=== PATIENT | female | born 1975 | race Caucasian/White ===

== ENCOUNTER 2016-05-14 12:24 | Outpatient (CLI) ==
[2012-11-07 13:31] VITALS: TEMP 97.2
[2015-10-22 03:24] VITALS: BMI 22.3
--- NOTE | 2016-05-14 12:44 | DI ---
EXAM: Chest two view, frontal and lateral views. HISTORY: Headache. COMPARISON: 10/22/2015, 04/23/2012. FINDINGS: The heart size is normal. There is no pulmonary vascular congestion. The lungs are hina r save for calcified granulomatous changes. No pleural effusion or pneumothorax is seen. No acute osseous abnormality identified. Since the prior study, there has been no significant interval [place] e. IMPRESSION: No acute cardiopulmonary process.
[2016-05-14 12:54] LABS: BASOPHILS % (AUTO) 0.4 % (0.0-3.0); EOSINOPHILS # (AUTO) 0.4 K/ul (0.0-0.7); EOSINOPHILS % (AUTO) 3.9 % (0.0-7.0); HEMATOCRIT 40.2 % (37.0-47.0); HEMOGLOBIN 13.2 g/dl (12.0-16.0); IMMATURE GRANULOCYTE % (AUTO) 0.3 % (0.0-5.0); LYMPHOCYTES # (AUTO) 1.9 K/uL (0.60-3.4); LYMPHOCYTES % (AUTO) 19.2 (10.0-50.0); MEAN CORPUSCULAR HEMOGLOBIN 30.2 pg (27.0-31.0); MEAN CORPUSCULAR HGB CONC 32.8 (31.8-35.4); MONOCYTES # (AUTO) 0.9 K/uL (0.4-2.0); MONOCYTES % (AUTO) 8.9 (0-10); NEUTROPHILS # (AUTO) 6.6 K/ul (2.0-6.9); NEUTROPHILS % (AUTO) 67.3; PLATELET COUNT 252 10^3/uL (140-440); RED BLOOD COUNT 4.37 10^6/ul (4.20-5.40); WHITE BLOOD COUNT 9.88 K/ul (4.6-10.2)
[2016-05-14 13:09] LABS: ALBUMIN 3.5 g/dL (3.4-5.0); ALBUMIN/GLOBULIN RATIO 0.97; BILIRUBIN,TOTAL 0.21 mg/dL (0.00-1.20); BUN/CREATININE RATIO 12.19; CALCIUM 9.2 mg/dL (8.2-10.2); CREATININE 0.82 mg/dL (0.60-1.30); TOTAL PROTEIN 7.1 g/dL (6.4-8.2)
== END 2016-05-14 12:25 | disposition home or self-care (01) ==
LOC: RAD 12:24
PROVIDERS: ATTEND Nurse Practitioner Family
DX: G44.89 Other headache syndrome (principal); J98.8 Other specified respiratory disorders; R42 Dizziness and giddiness
CPT/HCPCS: 36415; 80053; 85025

== ENCOUNTER 2016-05-19 10:05 | Outpatient (CLI) ==
[2012-11-07 13:31] VITALS: TEMP 97.2
[2015-10-22 03:24] VITALS: BMI 22.3
--- NOTE | 2016-05-19 10:39 | CT ---
EXAM: CT head without contrast. HISTORY: Headache. COMPARISON: 10/22/2015. TECHNIQUE: Multiple axial images of the brain were obtained from the skull base through the vertex without intravenous contrast. FINDINGS: There well-aligned tonsils, although CSF spaces appear preserved. no intracranial hemorr cristo or extraaxial collection. The tate-white differentiation is maintained without evidence for ac [place] large vascular territory infarction. The cortical sulci and basal cisterns are well visualized. There is no hydrocephalus, mass effect, or midline shift. Mild maxillary sinus mucosal thickening noted with a moderate amount of mucus in the left maxillary sinus. Otherwise, the paranasal sinuse s and mastoid air cells are clear. The calvarium is intact. IMPRESSION: 1. No acute intracranial abnormality. 2. Maxillary sinusitis.
== END 2016-05-19 10:06 | disposition home or self-care (01) ==
LOC: RAD 10:05
PROVIDERS: ATTEND Nurse Practitioner Family
DX: G44.89 Other headache syndrome (principal)

== ENCOUNTER 2016-05-28 09:43 | Outpatient (CLI) ==
[2012-11-07 13:31] VITALS: TEMP 97.2
[2015-10-22 03:24] VITALS: BMI 22.3
--- NOTE | 2016-05-28 10:54 | MAMMO ---
EXAM: Bilateral digital screening mammogram History: Baseline screening Findings: MLO and CC views of bilateral breasts demonstrate heterogeneously dense breast parenchyma which can obscure small lesions. There are no dominant masses, no suspicious microcalcifications a nd no architectural distortions Impression: Negative mammogram. Recommend followup routine screening mammography in 1 year. BIRADS 1
== END 2016-05-28 09:44 | disposition home or self-care (01) ==
LOC: RAD 09:43
PROVIDERS: ATTEND Nurse Practitioner Family
DX: Z12.31 Encounter for screening mammogram for malignant neoplasm of breast (principal)

== ENCOUNTER 2017-10-31 01:25 | Outpatient (CLI) ==
[2012-11-07 13:31] VITALS: TEMP 97.2
[2015-10-22 03:24] VITALS: BMI 22.3
== END 2017-10-31 01:40 | disposition short-term general hospital (02) ==
LOC: AMBL 01:25
PROVIDERS: ATTEND Internal Medicine Geriatric Medicine
DX: R07.9 Chest pain, unspecified (principal); R53.1 Weakness; R53.83 Other fatigue; R11.0 Nausea; R40.4 Transient alteration of awareness

== ENCOUNTER 2017-12-30 15:46 | Outpatient (CLI) ==
[2012-11-07 13:31] VITALS: TEMP 97.2
[2015-10-22 03:24] VITALS: BMI 22.3
== END 2017-12-30 15:47 | disposition home or self-care (01) ==
LOC: RHC-LAB 15:46
PROVIDERS: ATTEND Emergency Medicine
DX: I83.811 Varicose veins of right lower extremity with pain (principal); M25.551 Pain in right hip; Z00.00 Encounter for general adult medical examination without abnormal findings
CPT/HCPCS: 36415; 80053; 80061; 84443; 85025

== ENCOUNTER 2018-01-07 11:30 | Outpatient (CLI) ==
[2012-11-07 13:31] VITALS: TEMP 97.2
[2015-10-22 03:24] VITALS: BMI 22.3
--- NOTE | 2018-01-07 13:03 | DI ---
EXAM: Two views of the right hip. History: Right hip pain. Comparison: Right hip radiograph 09/26/2013 Findings: No acute fracture or dislocation. Joint spaces are preserved. Impression: Unremarkable exam
== END 2018-01-07 11:31 | disposition home or self-care (01) ==
LOC: RAD 11:30
PROVIDERS: ATTEND Emergency Medicine
DX: M25.551 Pain in right hip (principal)

== ENCOUNTER 2018-01-13 15:55 | Outpatient (CLI) ==
[2012-11-07 13:31] VITALS: TEMP 97.2
[2015-10-22 03:24] VITALS: BMI 22.3
== END 2018-01-13 15:56 | disposition home or self-care (01) ==
LOC: RAD 15:55
PROVIDERS: ATTEND Emergency Medicine
DX: Z12.31 Encounter for screening mammogram for malignant neoplasm of breast (principal)
CPT/HCPCS: 77067